=== PATIENT | female | born 1965 | race Caucasian/White ===

== ENCOUNTER 2016-12-09 12:47 | Day surgery (SDC) | payer MEDICARE ==
[~2016-12-09] VITALS: Ht 160 cm; Wt 73.2 kg
[2016-12-09] MEDS ORDERED: LIPITOR20 MG PO (14:29)
[2016-12-09] MEDS ORDERED: VITAMIN B-122500 MCG PO (14:30)
[2016-12-09] MEDS ORDERED: TIROSINT100 MCG PO (14:31)
[2016-12-09] MEDS ORDERED: NORCO 7.5/325 T1 TA1 PO (14:31)
[2016-12-09] MEDS ORDERED: HYDROCHLOROTHIA25 MG PO (14:31)
[2016-12-09] MEDS ORDERED: NEURONTIN 300300 MG PO (14:32)
[2016-12-09] MEDS ORDERED: COZAAR50 MG PO (14:32)
[2016-12-09] MEDS ORDERED: MAGNESIUM OXID250 MG PO (14:33)
[2016-12-09] MEDS ORDERED: OMEPRAZOLE40 MG PO (14:33)
[2016-12-09] MEDS ORDERED: MOBIC7.5 MG PO (14:33)
[2016-12-09] MEDS ORDERED: ZANTAC300 MG PO (14:35)
[2016-12-09] MEDS ORDERED: K-DUR20 MEQ PO (14:35)
[2016-12-09] MEDS ORDERED: COLACE100 MG PO (14:36)
[2016-12-09] MEDS ORDERED: BREO ELLIPTA 11 EACH INH (14:37)
[2016-12-09 14:49] LABS: BASOPHILS 0.5 % (0.0-2.0); EOSINOPHILS 1.2 % (0-7); HEMATOCRIT 40.3 % (36.0-48.0); HEMOGLOBIN 13.3 g/dL (12-16); IMMATURE GRANULOCYTES 0.1 % (0-5); LYMPHOCYTES 19.9 % (15-50); MCV 93.9 fL (80.0-100.0); MEAN PLATELET VOLUME 10.9 fL (7.4-10.4); MONOCYTES 9.4 % (2-11); NEUTROPHILS 68.9 % (40-80); PLATELET COUNT 279 10x3/uL (130-400); RBC 4.29 10x6/uL (4.00-5.40); RDW 13.1 % (11.5-14.5); WBC 7.5 10x3/uL (4.8-10.8)
[2016-12-09 14:55] VITALS: BP 106/68; Ht 160 cm; Wt 73.2 kg
[2016-12-09 15:00] LABS: CALC OSMOLALITY 278 mosm/kg (275-300); CALCIUM 9.7 mg/dL (8.5-10.1); CARBON DIOXIDE 31.3 mmol/L (21.0-32.0); CHLORIDE - SERUM 102 mmol/L (98-107); CREATININE - SERUM 0.8 mg/dL (0.6-1.3); GLUCOSE 138 mg/dL (74-106); POTASSIUM - SERUM 3.5 mmol/L (3.5-5.1); SODIUM 140 mmol/L (136-145); UREA NITROGEN 8 mg/dL (7-18); eGFR NON AFRICAN AMERICAN 80 mL/min (90-120)
--- NOTE | 2016-12-15 12:04 | OP ---
PATIENT NAME: SHERRY PAREDES MEDICAL RECORD: [id number] :63 LOCATION:[facility] ADMISSION DATE: SURGEON: MARILIN CAMPOS DO DATE OF OPERATION: 12/09/2016 PROCEDURE: Colonoscopy with biopsy. ENDOSCOPIST: Marilin Christianson DO. SCOPE: Olympus video colonoscope. MEDICATIONS: 350 mg of propofol by IV per anesthesia. INDICATIONS FOR TIVA: Emphysematous lung disease. INDICATIONS FOR PROCEDURE: Screening colonoscopy. FINDINGS: Informed consent was given. The patient was made comfortable with the above medication. After reaching an adequate level of sedation by slow IV push, the patient was placed on her left side. The endoscope was then advanced under direct visualization through the rectum to the cecum. The appendiceal orifice, ileocecal valve, cecal folds were visualized. Scope was withdrawn over a period of 10 minutes. The only findings included a couple of hyperplastic polyps in the sigmoid colon. Cold biopsy polypectomies were performed. The specimens will be sent to pathology lab to confirm the diagnosis. There were also internal hemorrhoids visualized on the examination on retroflexion. The scope was withdrawn from the patient. The patient tolerated the procedure well and there were no complications. IMPRESSION: 1. Hyperplastic sigmoid polyps removed with cold forceps. 2. Internal hemorrhoids, not bleeding. PLAN AND RECOMMENDATIONS: 1. Discharge home when recovery parameters are met. 2. Continue current medications. 3. High fiber diet. 4. Consider supplementing diet with 1-2 tablespoons of fiber daily. 5. Notify the clinic if the hemorrhoids become symptomatic. 6. We will await pathology for final recommendations on when to repeat a colonoscopy. At this time, I anticipate recall in 5 years. TRANSINT:[id number] Voice Confirmation ID: [id number] DOCUMENT ID: [id number] MARILIN CAMPOS DO at 1204 CC: [id number] DICTATION DATE: 12/09/16 1634 PROCESS IMPROVEMENT ENGINEER: 12/10/16 0059 [facility] 12/09/[address] [id number]
== END 2016-12-09 17:50 | disposition home or self-care (01) ==
LOC: D.OPS 12:47
PROVIDERS: Anesthesiology
DX: Z12.11 Encounter for screening for malignant neoplasm of colon (principal); K63.5 Polyp of colon; K64.8 Other hemorrhoids; J43.9 Emphysema, unspecified

== ENCOUNTER → 2016-12-16 10:17 | Outpatient (CLI) | payer MEDICARE ==
[2016-12-09 14:55] VITALS: BMI 28.5
[~2016-12-16 10:17] MED LIST: BREO ELLIPTA 11 EACH INH; COLACE100 MG PO; COZAAR50 MG PO; HYDROCHLOROTHIA25 MG PO; K-DUR20 MEQ PO; LIPITOR20 MG PO; MAGNESIUM OXID250 MG PO; MOBIC7.5 MG PO; NEURONTIN 300300 MG PO; NORCO 7.5/325 T1 TA1 PO; OMEPRAZOLE40 MG PO; TIROSINT100 MCG PO; VITAMIN B-122500 MCG PO; ZANTAC300 MG PO
== END | disposition home or self-care (01) ==
LOC: D.RAD 10:17
DX: R91.8 Other nonspecific abnormal finding of lung field (principal)

== ENCOUNTER → 2016-12-23 11:22 | Outpatient (CLI) | payer MEDICARE ==
[2016-12-09 14:55] VITALS: BMI 28.5
== END | disposition home or self-care (01) ==
LOC: D.CT 11:22
DX: R91.8 Other nonspecific abnormal finding of lung field (principal)